=== PATIENT | female | born 1990 | race Caucasian/White ===

== ENCOUNTER 2018-10-16 08:01 | Emergency (ER) | payer MEDICAID, SELFPAY ==
[2018-10-16 08:01] VITALS: BP 134/86; PULSE 79; RESP 16; TEMP 36.3; O2SAT 100; BMI 29.9
--- NOTE | 2018-10-16 08:15 | ED.VIS.GEN ---
History of Present Illness Chief Complaint: Weakness Informant: Patient Onset: Today Current Severity: Moderate Maximum Severity: Moderate Narrative: Patient presents with lightheadedness nausea and feeling weak. She woke up like this this morning. She does admit to quite a bit of alcohol last night. She has no chest pain shortness of breath fever or chills. She has no back pain. She has no rash she has no weakness or paresthesias. She does have a headache. Past Medical History - Allergies and Home Meds Allergies/Adverse Reactions: Allergies Penicillins Allergy (Verified 10/16/18 08:03) Unknown Past Medical History: None Surgical History: noncontributory Smoking Status: Current every day smoker Alcohol: Occasional Review of Systems All systems negative except as indicated General: Denies: Chills Eyes: Denies: Visual changes - bilaterally Cardiovascular: Denies: Chest pain Respiratory: Denies: Dyspnea Gastrointestinal: Reports: Nausea Musculoskeletal: Denies: Neck pain, Back pain Neurological: Reports: Headache, Weakness Physical Exam Vital Signs/Narrative: Vital Signs Temp Pulse Resp BP Pulse Ox 10/16/18 08:01 97.3 F L 79 16 134/86 H 100 General: Well nourished, - - Appears in some distress Head: Normocephalic, Atraumatic Eyes: Negative for: Pale conjunctiva ENT: Dry mucous membranes Cardiovascular: Regular rate, Regular rhythm Respiratory: No distress Abdomen: Soft, Nontender Back: Nontender, Normal Inspection Extremities: No edema Skin: Normal color Neurological: Alert, Oriented x3, Normal Strength, Normal Sensation Psychological: Normal affect Diagnostic/Tx/Re-eval - Medical Decision Making Patient appears well, she will be hydrated given antiemetics and Toradol. I will give her a note for work she will be discharged in stable condition. Disposition discharge stable condition ED Disposition - Plan for ED Patient: Disposition: Home or Assisted Living Diagnosis: Dehydration Instructions: Dehydration Referrals: Abraham Damon MD [STAFF PHYSICIAN] - 3-5 Days
[2018-10-16] MEDS: Ketorolac 15 MG/ML Vial IV (08:31)
[2018-10-16] MEDS: 0.9% Normal Saline 1,000 ML 1000 ML IV (08:31)
[2018-10-16] MEDS: Ondansetron 4 MG/2 ML Vial IV (08:31)
== END 2018-10-16 09:52 | disposition home or self-care (01) ==
PROVIDERS: Emergency Provider Emergency Medicine
DX: E86.0 Dehydration (principal); F17.200 Nicotine dependence, unspecified, uncomplicated
CPT/HCPCS: 96361; 96374; 96375; 99283; J7030; A4216; J2405

== ENCOUNTER 2018-12-08 05:34 | Emergency (ER) | payer SELFPAY ==
[2018-12-08 05:35] VITALS: BP 117/85; PULSE 75; RESP 16; TEMP 36.6; O2SAT 100; BMI 31.8
--- NOTE | 2018-12-08 05:54 | EKG12_ITS ---
Test Reason : CHEST PAIN Blood Pressure : / mmHG Vent. Rate : 078 BPM Atrial Rate : 078 BPM P-R Int : 162 ms QRS Dur : 090 ms QT Int : 386 ms P-R-T Axes : 059 052 069 degrees QTc Int : 440 ms Normal sinus rhythm Normal ECG Confirmed by JULEE SIMPSON, NAIDA ([id number]), state editor VINH HIDALGO ([id number]) on 12/10/2018 1:44:43 PM Referred By: SCOTT Confirmed By:NAIDA LADD MD
--- NOTE | 2018-12-08 05:54 | RAD_ITS ---
HISTORY: Chest Pain EXAMINATION/TECHNIQUE: XR Chest 1 View: Portable COMPARISON: None FINDINGS: Normal heart size. Lung volumes appear normal. No vascular congestion, pleural effusion, or pulmonary infiltration. No pneumothorax. The bony thorax appears intact. RAD/Chest 1 View (Portable) IMPRESSION: Normal chest. at 0626 Reported and signed by: Giovanni Choudhury MD Electronically Signed: Giovanni Choudhury, at 6:25 EDT Tel , Service support ,
--- NOTE | 2018-12-08 05:59 | ED.VISSUMM ---
- ER Visit Summary Date of Service: 12/08/18 Chief Complaint: Chest pain History of Present Illness: The patient is a 28 F who presents with chest pain that began yesterday. Patient describes the pain as a fullness that is sharp at times. Patient states the pain is over the left chest. Patient states nothing makes it better or worse. Patient admits to some nausea but denies any vomiting. Patient denies any diaphoresis. Patient does admit to some shortness of breath but denies any cough or fevers. Patient admits to some palpitations and lightheadedness. Patient is a smoker. Patient denies any other cardiac or PE risk factors. Physical Examination: Vital signs are stable. Patient is afebrile. Patient is in no acute distress. Oral mucosa is pink and moist. Neck is supple. Trachea is midline. There is no JVD noted. Heart was regular rate and rhythm. Lungs are clear and equal bilaterally. Abdomen is soft. Bowel sounds are normal. There is no tenderness. Cranial nerves II through XII are intact. There are no focal motor or sensory deficits noted. Skin is warm and dry. Test Results: EKG showed a normal sinus rhythm with a rate of 78. There are no acute ST or T wave changes. CBC, basic metabolic profile, and troponin were obtained and were within normal limits. Portable chest x-ray was obtained and was normal. Emergency Department Course and Treatment: Patient was given aspirin here. Patient felt better on reevaluation. Patient was advised that she is at low risk for acute cardiac event. Patient has a HEART score of 2. Patient was instructed to follow-up with her primary care physician in 5 to 7 days for further evaluation. Patient understood and was agreeable with the plan. All questions were answered. Disposition: Discharge home Impression: Chest pain This note was generated with [employer] dictation software. It may contain incorrect words, spelling, and punctuation that were not noted in review of the chart prior to signing ED Disposition - Plan for ED Patient: Disposition: Home or Assisted Living Diagnosis: Chest pain of uncertain etiology Instructions: CHEST PAIN, Uncertain Cause Referrals: Care Physician,No Primary [Primary Care Provider] - Jason Paiz MD [NON-STAFF] - 5-7 Days
[2018-12-08] MEDS: Aspirin 81 MG TAB.CHEW 324 MG PO (06:03)
[2018-12-08 06:45] LABS: Absolute Lymphocyte Count 1.96 X10^3/uL (0.83-4.51); Absolute Neutrophil Count 5.5 X10^3/uL (2.0-7.7); Basophil# 0.01 X10^3/uL; Basophil% 0.1 % (0-1); Eosinophils% 2.5 % (0-5); Hematocrit 44.9 % (37-47); Hemoglobin 14.9 g/dL (12.0-15.0); Lymphocyte # 1.96 X10^3/ul (4.0); Lymphocyte % 24.1 % (19-41); Mean Corp Hgb Conc 33.2 g/dL (32-36); Mean Corpuscular Hgb 31.5 pg (27.0-32.0); Mean Corpuscular Volume 94.9 fL (81-99); Monocyte# 0.48 X10^3/uL; Monocyte% 5.9 % (0-10); NRBC Flagged by Analyzer 0 % (0-5); Neutrophil # 5.47 X10^3/uL (2.7-7.7); Neutrophil % 67.2 % (47-70); Platelet Count 385 K/mm3 (150-450); RBC Distribution Width CV 12.2 % (11.6-14.6); RBC Distribution Width SD 42.8 fl (35.1-43.9); Red Blood Count 4.73 M/mm3 (4.2-5.4); White Blood Count 8.1 K/mm3 (4.4-11.0)
[2018-12-08 06:47] LABS: Anion Gap 6 (5-15); BUN 11 mg/dL (7-18); BUN/Creat Ratio 15.1 RATIO (10-20); Chloride 105 mmol/L (98-107); Creatinine, Serum 0.73 mg/dL (0.55-1.02); EST Glomerular Filtration Rate 102 mL/min (>60); Est Glom Filt Rate - Afr Amer 123 mL/min (>60); Estimated Creatinine Clearance 99.96 ml/min; Glucose 98 mg/dL (74-106); Potassium 3.8 mmol/L (3.5-5.1); Sodium Level 139 mmol/L (136-145)
[2018-12-08 07:39] VITALS: RESP 18
== END 2018-12-08 07:40 | disposition home or self-care (01) ==
PROVIDERS: Emergency Provider Emergency Medicine
DX: R07.9 Chest pain, unspecified (principal); F17.200 Nicotine dependence, unspecified, uncomplicated
CPT/HCPCS: 71045; 80048; 84484; 85025; 93005; 99284; A4216

== ENCOUNTER 2019-01-29 05:52 | Emergency (ER) | payer MEDICAID, SELFPAY ==
[2019-01-29 05:53] VITALS: BP 124/73; PULSE 70; RESP 21; TEMP 36.7; O2SAT 100; BMI 32.8
--- NOTE | 2019-01-29 06:14 | EKG12_ITS ---
Test Reason : DIZZINESS Blood Pressure : / mmHG Vent. Rate : 060 BPM Atrial Rate : 060 BPM P-R Int : 140 ms QRS Dur : 092 ms QT Int : 400 ms P-R-T Axes : 046 068 054 degrees QTc Int : 400 ms Normal sinus rhythm with sinus arrhythmia Normal ECG Confirmed by MEAGHAN SIMPSON, ABBY ([id number]), editorial specialist KEN AGUILLON ([id number]) on 02/02/2019 11:50:38 AM Referred By: ALIDA Confirmed By:ABBY HARDING MD
--- NOTE | 2019-01-29 06:14 | ED.VIS.GEN ---
History of Present Illness Chief Complaint: Dizziness Informant: Patient Onset: Today Context: Gradual Onset Timing: Waxes and wanes Current Severity: Mild Maximum Severity: Moderate Narrative: Patient presents with lightheaded and dizzy sensation with near syncope. She was at work earlier this morning. She took a tab of Ntractive pain medicine around 430 or 445. She states this is a coworkers medication and did have caffeine in it. Patient states that around 5 AM she started feeling lightheaded and dizzy. She felt as if she might pass out. She states she felt like her heart was racing but when she would check her heart rate it seems normal. Symptoms are improving at this time. - Past Medical History (1) Anxiety Status: Chronic (2) Depression Status: Chronic Past Medical History - Allergies and Home Meds Allergies/Adverse Reactions: Allergies Penicillins Allergy (Verified 10/16/18 08:03) Unknown shellfish derived Allergy (Verified 12/08/18 05:35) Hives Primary Care Physician: Care Physician,No Primary [Primary Care Provider] - Prior records reviewed: Yes Surgical History: noncontributory Smoking Status: Current every day smoker Review of Systems General: Denies: Chills, Fever Eyes: Denies: Visual changes - bilaterally ENT: Denies: Bilateral ear pain, Sore throat Cardiovascular: Reports: Heart racing. Denies: Chest pain Respiratory: Denies: Dyspnea, Cough Gastrointestinal: Denies: Abdominal pain, Nausea, Vomiting, Diarrhea Genitourinary: Denies: Dysuria Musculoskeletal: Denies: Neck pain, Back pain Skin: Denies: Rash Neurological: Denies: Headache Hematologic: Denies: Easy bruising, Easy bleeding Allergy: Denies: Uticaria Physical Exam Vital Signs/Narrative: Vital Signs Temp Pulse Resp BP Pulse Ox 01/29/19 05:53 98.0 F 70 21 H 124/73 H 100 Inital Vital Signs reviewed: Yes General: Well nourished, Well developed Head: Normocephalic ENT: Moist mucous membranes Neck: Supple Cardiovascular: Regular rate, Regular rhythm Respiratory: No distress, CTA bilaterally Abdomen: Soft, Nontender Skin: Normal color Neurological: Alert, Oriented x3 Psychological: Normal affect Diagnostic/Tx/Re-eval Laboratory Results 01/29/19 01/29/19 01/29/19 06:24 06:30 06:30 WBC Corrected WBC RBC Hgb Hct MCV MCH MCHC RDW Std Deviation RDW Coeff of Petr Plt Count MPV Immature Gran % (Auto) Neut % (Auto) Lymph % (Auto) [place] % (Auto) Eos % (Auto) Baso % (Auto) Absolute Neuts (auto) Absolute Lymphs (auto) Total Counted Neutrophils % (Manual) Band Neutrophils % Lymphocytes % (Manual) Monocytes % (Manual) Eosinophils % (Manual) Basophils % (Manual) Metamyelocytes % Myelocytes % Promyelocytes % Blast Cells % Plasma Cell % (Manual) Other Cells % Nucleated RBC % Nucleated RBCs/100 WBC Differential Comment Diff Path Review Hypersegmented Neuts Atypical Lymphocytes Reactive Lymphocytes Smudge Cells Toxic Granulation Toxic Vacuolation Dohle Bodies Vanessa Rods Platelet Estimate Plt Morphology Comment RBC Morphology Polychromasia Hypochromasia Poikilocytosis Basophilic Stippling Anisocytosis Microcytosis Macrocytosis Spherocytes Sickle Cells Target Cells Tear Drop Cells Ovalocytes Stomatocytes [place] Bodies Owen Cells Bite Cells Crenated Cell Acanthocytes (Spur) Rouleaux Schistocytes Sodium Potassium Chloride Carbon Dioxide Anion Gap BUN Creatinine Estim Creat Clear Calc Est GFR (MDRD) Af Amer Est GFR (MDRD) Non-Af BUN/Creatinine Ratio Glucose Calcium Urine Color Straw Urine Clarity Clear Urine pH 7.0 Ur Specific [place] 1.010 Urine Protein Negative Urine Glucose (UA) Normal Urine Ketones Negative Urine Occult Blood Negative Urine Nitrite Negative Urine Bilirubin Negative Urine Urobilinogen Normal Ur Leukocyte Esterase Negative Urine RBC 0 SEEN Urine WBC 0 SEEN Ur Squamous Epith Cells 0-5 SEEN Urine Bacteria 0 SEEN Urine Mucus 0 SEEN Urine Test Negative POC Glucose 98 01/29/19 01/29/19 01/29/19 06:35 06:35 06:55 WBC Cancelled 8.3 Corrected WBC Cancelled RBC Cancelled 4.21 Hgb Cancelled 13.4 Hct Cancelled 39.1 MCV Cancelled 92.9 MCH Cancelled 31.8 MCHC Cancelled 34.3 RDW Std Deviation Cancelled 41.7 RDW Coeff of Petr Cancelled 12.2 Plt Count Cancelled 327 MPV Cancelled 9.6 Immature Gran % (Auto) Cancelled 0.200 Neut % (Auto) Cancelled 71.3 H Lymph % (Auto) Cancelled 19.6 [place] % (Auto) Cancelled 7.1 Eos % (Auto) Cancelled 1.6 Baso % (Auto) Cancelled 0.2 Absolute Neuts (auto) Cancelled 5.9 Absolute Lymphs (auto) Cancelled 1.62 Total Counted Cancelled Neutrophils % (Manual) Cancelled Band Neutrophils % Cancelled Lymphocytes % (Manual) Cancelled Monocytes % (Manual) Cancelled Eosinophils % (Manual) Cancelled Basophils % (Manual) Cancelled Metamyelocytes % Cancelled Myelocytes % Cancelled Promyelocytes % Cancelled Blast Cells % Cancelled Plasma Cell % (Manual) Cancelled Other Cells % Cancelled Nucleated RBC % Cancelled 0 Nucleated RBCs/100 WBC Cancelled Differential Comment Cancelled Diff Path Review Cancelled Hypersegmented Neuts Cancelled Atypical Lymphocytes Cancelled Reactive Lymphocytes Cancelled Smudge Cells Cancelled Toxic Granulation Cancelled Toxic Vacuolation Cancelled Dohle Bodies Cancelled Vanessa Rods Cancelled Platelet Estimate Cancelled Plt Morphology Comment Cancelled RBC Morphology Cancelled Polychromasia Cancelled Hypochromasia Cancelled Poikilocytosis Cancelled Basophilic Stippling Cancelled Anisocytosis Cancelled Microcytosis Cancelled Macrocytosis Cancelled Spherocytes Cancelled Sickle Cells Cancelled Target Cells Cancelled Tear Drop Cells Cancelled Ovalocytes Cancelled Stomatocytes Cancelled [place] Bodies Cancelled Owen Cells Cancelled Bite Cells Cancelled Crenated Cell Cancelled Acanthocytes (Spur) Cancelled Rouleaux Cancelled Schistocytes Cancelled Sodium Cancelled Potassium Cancelled Chloride Cancelled Carbon Dioxide Cancelled Anion Gap Cancelled BUN Cancelled Creatinine Cancelled Estim Creat Clear Calc Cancelled Est GFR (MDRD) Af Amer Cancelled Est GFR (MDRD) Non-Af Cancelled BUN/Creatinine Ratio Cancelled Glucose Cancelled Calcium Cancelled Urine Color Urine Clarity Urine pH Ur Specific [place] Urine Protein Urine Glucose (UA) Urine Ketones Urine Occult Blood Urine Nitrite Urine Bilirubin Urine Urobilinogen Ur Leukocyte Esterase Urine RBC Urine WBC Ur Squamous Epith Cells Urine Bacteria Urine Mucus Urine Test POC Glucose 01/29/19 07:10 WBC Corrected WBC RBC Hgb Hct MCV MCH MCHC RDW Std Deviation RDW Coeff of Petr Plt Count MPV Immature Gran % (Auto) Neut % (Auto) Lymph % (Auto) [place] % (Auto) Eos % (Auto) Baso % (Auto) Absolute Neuts (auto) Absolute Lymphs (auto) Total Counted Neutrophils % (Manual) Band Neutrophils % Lymphocytes % (Manual) Monocytes % (Manual) Eosinophils % (Manual) Basophils % (Manual) Metamyelocytes % Myelocytes % Promyelocytes % Blast Cells % Plasma Cell % (Manual) Other Cells % Nucleated RBC % Nucleated RBCs/100 WBC Differential Comment Diff Path Review Hypersegmented Neuts Atypical Lymphocytes Reactive Lymphocytes Smudge Cells Toxic Granulation Toxic Vacuolation Dohle Bodies Vanessa Rods Platelet Estimate Plt Morphology Comment RBC Morphology Polychromasia Hypochromasia Poikilocytosis Basophilic Stippling Anisocytosis Microcytosis Macrocytosis Spherocytes Sickle Cells Target Cells Tear Drop Cells Ovalocytes Stomatocytes [place] Bodies Owen Cells Bite Cells Crenated Cell Acanthocytes (Spur) Rouleaux Schistocytes Sodium 140 Potassium 3.8 Chloride 107 Carbon Dioxide 27.0 Anion Gap 6 BUN 12 Creatinine 0.56 Estim Creat Clear Calc 130.31 Est GFR (MDRD) Af Amer 166 Est GFR (MDRD) Non-Af 137 BUN/Creatinine Ratio 21.4 H Glucose 83 Calcium 8.8 Urine Color Urine Clarity Urine pH Ur Specific [place] Urine Protein Urine Glucose (UA) Urine Ketones Urine Occult Blood Urine Nitrite Urine Bilirubin Urine Urobilinogen Ur Leukocyte Esterase Urine RBC Urine WBC Ur Squamous Epith Cells Urine Bacteria Urine Mucus Urine Test POC Glucose - EKG Initial EKG Interpretation: Sinus Rhythm - Sinus at 60 with no acute ischemia. - Medical Decision Making Patient was given IV fluids here. On repeat evaluation she does feel improved. I do not know if she reacted to the caffeine that was in the tablet she took earlier today or some other component, but symptoms seem to be improving. She is comfortable with discharge to home and monitor her symptoms. ED Disposition - Plan for ED Patient: Disposition: Home or Assisted Living Diagnosis: Dizziness Instructions: DIZZINESS, Unk Cause Referrals: Juan Luna MD [STAFF PHYSICIAN] - As Needed
[2019-01-29 06:30] LABS: Bedside Glucose 98 mg/dL (70-110)
[2019-01-29 06:43] LABS: Bacteria 0 SEEN /hpf (None Seen); Mucous, Urine 0 SEEN /hpf (<or=2+); Red Blood Cells-Urine 0 SEEN /hpf (0-5); White Blood Cells 0 SEEN /hpf (0-5)
[2019-01-29 06:49] LABS: Internal QC Validated? YES +Cl - CLEAR BKGD; Pregnancy, Urine Negative Negative
[2019-01-29 07:01] LABS: Color, Urine Straw (Yellow); Glucose, Dipstick Normal (Normal); Ketone-Dipstick Negative (Negative); Leukocyte Esterase-Dipstick Negative /ul (Negative); Nitrite-Dipstick Negative (Negative); Occult Blood-Urine Negative /ul (Negative); Protein-Dipstick Negative (Negative); Urine Bilirubin Dipstick Negative (Negative); Urine Clarity Clear (Clear); Urine Urobilinogen Normal (Normal)
[2019-01-29 07:03] LABS: Squamous Epithelial Cells - UA 0-5 SEEN /hpf (5-10)
[2019-01-29 07:06] LABS: Absolute Lymphocyte Count 1.62 X10^3/uL (0.83-4.51); Absolute Neutrophil Count 5.9 X10^3/uL (2.0-7.7); Basophil# 0.02 X10^3/uL; Basophil% 0.2 % (0-1); Eosinophil# 0.13 X10^3/uL; Eosinophils% 1.6 % (0-5); Hematocrit 39.1 % (37-47); Hemoglobin 13.4 g/dL (12.0-15.0); Lymphocyte # 1.62 X10^3/ul (4.0); Lymphocyte % 19.6 % (19-41); Mean Corp Hgb Conc 34.3 g/dL (32-36); Mean Corpuscular Hgb 31.8 pg (27.0-32.0); Mean Corpuscular Volume 92.9 fL (81-99); Mean Platelet Vol. 9.6 fl (6.2-12.0); Monocyte# 0.59 X10^3/uL; Monocyte% 7.1 % (0-10); NRBC Flagged by Analyzer 0 % (0-5); Neutrophil # 5.88 X10^3/uL (2.7-7.7); Neutrophil % 71.3 % (47-70); Platelet Count 327 K/mm3 (150-450); RBC Distribution Width CV 12.2 % (11.6-14.6); RBC Distribution Width SD 41.7 fl (35.1-43.9); Red Blood Count 4.21 M/mm3 (4.2-5.4); White Blood Count 8.3 K/mm3 (4.4-11.0)
[2019-01-29 07:27] LABS: Anion Gap 6 (5-15); BUN 12 mg/dL (7-18); BUN/Creat Ratio 21.4 RATIO (10-20); Calcium,Total 8.8 mg/dL (8.5-10.1); Chloride 107 mmol/L (98-107); Creatinine, Serum 0.56 mg/dL (0.55-1.02); EST Glomerular Filtration Rate 137 mL/min (>60); Est Glom Filt Rate - Afr Amer 166 mL/min (>60); Estimated Creatinine Clearance 130.31 ml/min; Glucose 83 mg/dL (74-106); Potassium 3.8 mmol/L (3.5-5.1); Sodium Level 140 mmol/L (136-145)
[2019-01-29 07:40] VITALS: BP 108/72; PULSE 71; RESP 15; O2SAT 98
== END 2019-01-29 07:42 | disposition home or self-care (01) ==
PROVIDERS: Emergency Provider Emergency Medicine
DX: R42 Dizziness and giddiness (principal); F17.200 Nicotine dependence, unspecified, uncomplicated
CPT/HCPCS: 80048; 81001; 81025; 82962; 85025; 93005; 99285; J7040; A4216

== ENCOUNTER 2019-02-10 10:37 | Emergency (ER) | payer MEDICAID, SELFPAY ==
[2019-02-10 10:39] VITALS: BP 133/78; PULSE 63; RESP 16; TEMP 36.4; O2SAT 100; BMI 32.5
--- NOTE | 2019-02-10 11:26 | ED.DCSUM_ITS ---
- ER Visit Summary Date of Service: 02/10/19 Chief Complaint: Possible low blood sugar History of Present Illness: The patient is a 28 F no seen past medical or surgical history. She is concerned that she may be intermittently having low blood sugars. States that she ate breakfast earlier this morning around 430 5:00 she had pancakes. Around 8:00 at work she felt like her sugars were dropping. She tried to eat to improve that. She had no way of checking her blood sugar. She has had episodes like this before. She denies any headache, chest pain, abdominal pain. She denies any nausea, vomiting, diarrhea or fever. No dysuria. Last menstrual period was less than 2 weeks ago. She denies any palpitations or irregular heartbeat. She states when this comes on she just does not feel well and kind of foggy. But eventually goes away. Physical Examination: Young female no acute distress vital signs are stable afebrile. H EENT exam unremarkable. Neck nontender. Lungs clear to auscultation bilaterally. Heart regular rhythm no murmur. Chest wall nontender. Abdomen soft nontender. Patient is moving all 4 extremities. Neurovascular intact. Calves are nontender without edema. Neurologically she is awake and alert with no focal motor deficits. Back exam nontender. NIH score is 0. 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 Normal dorsi plantar flexion bilaterally. Test Results: CBC shows no acute abnormality. White count of 7. Hemoglobin 13. BMP shows normal glucose of 76. Normal BUN and creatinine. TSH normal 1.5 Emergency Department Course and Treatment: Patient's exam is unremarkable. Scr eening labs will be obtained. Treatment Plan: P exam she is doing well. She will be discharged to home. She is concerned she might have hypoglycemia. I told her to eat smaller more frequent meals throughout the day. Follow-up for testing on this. Disposition: Discharge Impression: Transient malaise malaise of uncertain etiology rule out hypoglycemia This note was generated with [employer] dictation software. It may contain incorrect words, spelling, and punctuation that were not noted in review of the chart prior to signing ED Disposition - Plan for ED Patient: Referrals: Care Physician,No Primary [Primary Care Provider] -
[2019-02-10 11:42] LABS: Absolute Lymphocyte Count 2.47 X10^3/uL (0.83-4.51); Absolute Neutrophil Count 4.2 X10^3/uL (2.0-7.7); Basophil# 0.02 X10^3/uL; Basophil% 0.3 % (0-1); Eosinophil# 0.19 X10^3/uL; Eosinophils% 2.6 % (0-5); Hematocrit 41.7 % (37-47); Hemoglobin 13.9 g/dL (12.0-15.0); Lymphocyte # 2.47 X10^3/ul (4.0); Lymphocyte % 33.8 % (19-41); Mean Corp Hgb Conc 33.3 g/dL (32-36); Mean Corpuscular Hgb 31.4 pg (27.0-32.0); Mean Corpuscular Volume 94.3 fL (81-99); Mean Platelet Vol. 8.8 fl (6.2-12.0); Monocyte# 0.46 X10^3/uL; Monocyte% 6.3 % (0-10); NRBC Flagged by Analyzer 0 % (0-5); Neutrophil # 4.16 X10^3/uL (2.7-7.7); Neutrophil % 56.9 % (47-70); Platelet Count 362 K/mm3 (150-450); RBC Distribution Width CV 11.9 % (11.6-14.6); RBC Distribution Width SD 41.6 fl (35.1-43.9); Red Blood Count 4.42 M/mm3 (4.2-5.4); White Blood Count 7.3 K/mm3 (4.4-11.0)
[2019-02-10 12:08] LABS: Anion Gap 4 (5-15); BUN 12 mg/dL (7-18); BUN/Creat Ratio 22.7 RATIO (10-20); Calcium,Total 8.7 mg/dL (8.5-10.1); Chloride 110 mmol/L (98-107); Creatinine, Serum 0.53 mg/dL (0.55-1.02); EST Glomerular Filtration Rate 147 mL/min (>60); Est Glom Filt Rate - Afr Amer 178 mL/min (>60); Estimated Creatinine Clearance 137.68 ml/min; Glucose 76 mg/dL (74-106); Potassium 3.8 mmol/L (3.5-5.1); Sodium Level 142 mmol/L (136-145); Thyroid Stim Hormone (TSH) 1.51 uIU/mL (0.358-3.74)
[2019-02-10 12:10] VITALS: BP 133/78; PULSE 63; RESP 16; TEMP 36.4; O2SAT 100; BMI 32.5
--- NOTE | 2019-02-10 12:22 | ED.DEP ---
ED Disposition - Plan for ED Patient: Disposition: Home or Assisted Living Instructions: DIZZINESS, Unk Cause, HYPOGLYCEMIA, Non Diabetic Referrals: Joselo Engel, [NON CLINICAL AFFILIATE] - As soon as possible Additional Instructions: If this is hypoglycemia 1 of the ways to treat it would be eating smaller more frequent meals throughout the day. Also increase your protein.
[2019-02-10 12:30] VITALS: BP 115/80; PULSE 66; RESP 16; O2SAT 100
--- NOTE | 2019-02-10 12:30 | ED.RN ---
REVIEWED D/C INSTRUCTIONS, FOLLOW UP CARE, AND S/S THAT WOULD WARRANT A RETURN TO THE ED WITH PT. PT VERBALIZED AN UNDERSTANDING AND DENIES FURTHER QUESTIONS FOR THIS RN. PT SKIN P/W/D, RESP EVEN AND UNLABORED, PT A&O X 3, NO DISTRESS NOTED. PT AMBULATED OUT OF ED, GAIT STEADY.
== END 2019-02-10 12:31 | disposition home or self-care (01) ==
PROVIDERS: Emergency Provider Emergency Medicine
DX: R42 Dizziness and giddiness (principal); R53.81 Other malaise; Z72.0 Tobacco use
CPT/HCPCS: 80048; 84443; 85025; 99284; A4216

== ENCOUNTER 2019-03-25 06:34 | Emergency (ER) | payer MEDICAID, SELFPAY ==
[2019-03-25 06:35] VITALS: BP 118/60; PULSE 88; RESP 16; TEMP 36.4; O2SAT 100; BMI 34.1
--- NOTE | 2019-03-25 07:04 | ED.VIS.GEN ---
History of Present Illness Chief Complaint: Fatigue Informant: Patient Onset: Today Narrative: Patient is a 28-year-old female with history of anxiety and vertigo presenting with concern for dehydration. Patient was drinking last night and then woke up around 4 AM feeling unwell. She states she drink a sixpack as well as 2 tall boys last night. Patient states she drinks daily. She is not interested in quitting drinking. She also smokes cigarettes regularly. Patient denies any associated nausea or vomiting. She denies any abdominal pain. She notes that she just feels dehydrated and wants IV fluids. Patient states she does have some chest tightness which she attributes to her anxiety. She states is typical for her anxiety. Patient states she does not want an EKG or cardiac evaluation. Patient denies any other complaints at this time. Past Medical History - Allergies and Home Meds Allergies/Adverse Reactions: Allergies aspirin Allergy (Verified 02/10/19 10:39) Other Penicillins Allergy (Verified 02/10/19 10:39) Unknown shellfish derived Allergy (Verified 02/10/19 10:39) Hives Primary Care Physician: Derrell Mars MD [Primary Care Provider] - Past Medical History: - - Anxiety, vertigo Surgical History: noncontributory Smoking Status: Current every day smoker Alcohol: Heavy Drugs: None Review of Systems General: Reports: Malaise. Denies: Chills, Fever, Sweats Eyes: Denies: Visual changes - bilaterally, Diplopia ENT: Denies: Rhinorrhea, Sore throat Cardiovascular: Reports: Chest pain - Tightness. Denies: Palpitations Respiratory: Denies: Dyspnea, Cough, Dyspnea on exertion Gastrointestinal: Denies: Abdominal pain, Nausea, Vomiting, Diarrhea, Melena, Hematochezia Genitourinary: Denies: Dysuria, Hematuria, Frequency Musculoskeletal: Denies: Back pain, Extremity Pain Skin: Denies: Rash, Wounds Neurological: Denies: Headache, Weakness, Numbness Psych: Reports: Anxiety Physical Exam Vital Signs/Narrative: Vital Signs Temp Pulse Resp BP Pulse Ox 03/25/19 06:35 97.6 F L 88 16 118/60 100 Inital Vital Signs reviewed: Yes General: Well nourished, Well developed, No Acute Distress Head: Normocephalic, Atraumatic Eyes: Perrl, EOMI ENT: Moist mucous membranes, No rhinorrhea Neck: Supple, Nontender Cardiovascular: Regular rate, Regular rhythm, No murmurs Respiratory: No distress, CTA bilaterally, Chest nontender Abdomen: Soft, Nontender, Nondistended, Normal bowel sounds. Negative for: Guarding, Rebound tenderness Back: Nontender, Normal Inspection Extremities: Nontender, No edema Skin: Normal color, No rash Neurological: Alert, Oriented x3, Cranial nerves II-XII grossly intact, Normal Strength, Normal Sensation Psychological: Normal affect, Normal Mood, Tearful Diagnostic/Tx/Re-eval Laboratory Data 03/25/19 03/25/19 07:13 07:13 WBC 9.1 RBC 4.92 Hgb 15.3 H Hct 45.9 MCV 93.3 MCH 31.1 MCHC 33.3 RDW Std Deviation 41.8 RDW Coeff of Petr 12.1 Plt Count 327 MPV 9.0 Immature Gran % (Auto) 0.300 Neut % (Auto) 72.3 H Lymph % (Auto) 20.1 [place] % (Auto) 5.5 Eos % (Auto) 1.5 Baso % (Auto) 0.3 Absolute Neuts (auto) 6.5 Absolute Lymphs (auto) 1.82 Nucleated RBC % 0 Sodium 138 Potassium 4.3 Chloride 111 H Carbon Dioxide 21.0 Anion Gap 6 BUN 6 L Creatinine 0.54 L Estim Creat Clear Calc 135.13 Est GFR (MDRD) Af Amer 175 Est GFR (MDRD) Non-Af 144 BUN/Creatinine Ratio 11.2 Glucose 75 Calcium 8.6 Total Bilirubin 0.50 AST 27 ALT 37 Alkaline Phosphatase 58 Total Protein 7.7 Albumin 3.8 Globulin 3.9 Albumin/Globulin Ratio 1.0 Lipase 60 L - Medical Decision Making Patient is evaluated for concern of dehydration. She was drinking heavily last night. She appears nontoxic in no acute distress. She is not clinically intoxicated. I do not think there is a need to check an alcohol level at this time. Patient is not have any abdominal pain. I did check a CBC, CMP and lipase. These were all grossly normal. She is slightly hemoconcentrated consistent with her concerns for dehydration. She is given IV fluids. Patient be discharged home after IV fluids. She is offered resources for alcohol abuse but declines. Patient was offered EKG and cardiac work-up for her chest pain but she refuses. Patient is counseled on signs and symptoms requiring return to the emergency room. Patient verbalizes agreement and understand this plan. Patient discharged home in stable and improved condition. ED Disposition - Plan for ED Patient: Disposition: Home or Assisted Living Diagnosis: Dehydration Instructions: DEHYDRATION (7y-Adult) Referrals: Derrell Mars MD [Primary Care Provider] -
[2019-03-25] MEDS: 0.9% Normal Saline 1,000 ML 1000 ML IV (07:14)
[2019-03-25 07:26] LABS: Absolute Lymphocyte Count 1.82 X10^3/uL (0.83-4.51); Absolute Neutrophil Count 6.5 X10^3/uL (2.0-7.7); Basophil# 0.03 X10^3/uL; Basophil% 0.3 % (0-1); Eosinophil# 0.14 X10^3/uL; Eosinophils% 1.5 % (0-5); Hematocrit 45.9 % (37-47); Hemoglobin 15.3 g/dL (12.0-15.0); Lymphocyte # 1.82 X10^3/ul (4.0); Lymphocyte % 20.1 % (19-41); Mean Corp Hgb Conc 33.3 g/dL (32-36); Mean Corpuscular Hgb 31.1 pg (27.0-32.0); Mean Corpuscular Volume 93.3 fL (81-99); Monocyte% 5.5 % (0-10); NRBC Flagged by Analyzer 0 % (0-5); Neutrophil # 6.54 X10^3/uL (2.7-7.7); Neutrophil % 72.3 % (47-70); Platelet Count 327 K/mm3 (150-450); RBC Distribution Width CV 12.1 % (11.6-14.6); RBC Distribution Width SD 41.8 fl (35.1-43.9); Red Blood Count 4.92 M/mm3 (4.2-5.4); White Blood Count 9.1 K/mm3 (4.4-11.0)
[2019-03-25 07:50] LABS: AST(SGOT) 27 U/L (15-37); Alanine Aminotransfer ALT/SGPT 37 U/L (13-56); Albumin, Serum 3.8 g/dL (3.2-5.0); Alkaline Phosphatase 58 U/L (45-117); Anion Gap 6 (5-15); BUN 6 mg/dL (7-18); BUN/Creat Ratio 11.2 RATIO (10-20); Calcium,Total 8.6 mg/dL (8.5-10.1); Chloride 111 mmol/L (98-107); Creatinine, Serum 0.54 mg/dL (0.55-1.02); EST Glomerular Filtration Rate 144 mL/min (>60); Est Glom Filt Rate - Afr Amer 175 mL/min (>60); Estimated Creatinine Clearance 135.13 ml/min; Globulin 3.9 g/dL (2.2-4.2); Glucose 75 mg/dL (74-106); Lipase 60 U/L (73-393); Potassium 4.3 mmol/L (3.5-5.1); Protein, Total 7.7 g/dL (6.4-8.2); Sodium Level 138 mmol/L (136-145)
[2019-03-25 08:29] VITALS: BP 115/58; PULSE 106; RESP 16; O2SAT 95
== END 2019-03-25 08:33 | disposition home or self-care (01) ==
PROVIDERS: Emergency Provider Emergency Medicine; PCP Family Medicine
DX: E86.0 Dehydration (principal); R07.89 Other chest pain; F41.9 Anxiety disorder, unspecified; F17.210 Nicotine dependence, cigarettes, uncomplicated; Z79.899 Other long term (current) drug therapy; Z88.0 Allergy status to penicillin
CPT/HCPCS: 80053; 83690; 85025; 96360; 99285; J7030; A4216

== ENCOUNTER 2019-04-09 15:00 | Outpatient (RCR) | payer MEDICAID, SELFPAY ==
--- NOTE | 2019-03-13 14:33 | HP.PTEVAL_ITS ---
Patient's Visit Information MADISON MCKENNA is a 28 year old F referred to Physical Therapy by Derrell Mars MD with a diagnosis of vertigo. Date of Evaluation: 03/13/19 Physical Therapist: César Myers, ZANDRAT, OCS, CSCS - Visit Plan Frequency: 1x/Week Duration: 4-6 Weeks Plan: weekly PT to progress adaptationa dn habituation as needed adn helpful. - Subjective Findings: Dizzyness. Started on adn off for the last year. Frequently daily and multiple times per day. Sometimes gets a good couple days. It lasts couple minutes to several hours. Not sure what causes it. Got meds for meclizine which helps. Last episode was this am. 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 Worse in am and when active at work. Sleeping OK, no problem at night. Head position is not a huge issue, maybe sometimes when looks up. Hiking is a hobby and won't start it when dizzy. Basic ADLs are OK, just makes it miserable. - Objective Waks normal, trasnfers normal, steps reciprocal without rail. Vor walking is symptomatic but able. cervical ROM and UE ROM WFL without pain. - B hallpike leonie. - roll test. Oculomotor: no nystagmus with gaze or headshake. - ocular tilt. - skew eye deviation. - head thrust. Pursuit and saccades are normal. VOR x2 gives immediate symptoms of dizzyness. VOR horiz give 4/10 dizzyness after 30 seconds for about 10 seconds. Vertical VOR not bad. - Balance Scores Functional Gait Assessment Score: 29 % Disability: 3.3400 CATSIB Score (Max score 120 seconds): 110 - Goals Goal 1:: Vertigo abolished at work. Goal Time Frame: 4-6 Weeks Goal 2:: VOR x 2 60 seconds without symptoms. Goal Time Frame: 4-6 Weeks Goal 3:: Pt score <3 on DHI Goal Time Frame: 4-6 Weeks - Rehabilitation Potential Physical Therapy Diagnosis: Vertigo vestib hypofunction. Rehabilitation Potential: Fair - Anticipated Interventions Patient/Client Instruction: Educate patient on: Condition, Plan of Care For the Purpose of:: To increase tolerance to activity/condition/position Comment: adaptation adn habituation For the Purpose of:: To increase tolerance to activity/condition/position Thank you for the opportunity to evaluate your patient. For Medicare and Medicare HMO plans, please review the plan of care and approve it. It will need to be FAXED BACK to us at [phone] for Medicare purposes. For Medicare only, by signing this I certify the plan of care. Please let me know if there are questions or concerns regarding this plan of care. Physician Si gnature: Date:
--- NOTE | 2019-04-09 15:13 | HP.PTDCSUM ---
HP - PT D/C Summary It has been my pleasure to treat MADISON MCKENNA under orders from Derrell Mars MD, for the diagnosis of vertigo for a total of 4 visit(s). Discharge Date: 04/09/19 Please see the following information for a summary of their discharge status. - Subjective Subjective: 90% better. Still a little dizzyness most days at work. No dizzyness at work today. Ex make her dizzy but improving. Sleep is Ok. - Overall Improvement % Improvement: 90 - Objective Objective/Function: VOR and VOR x2 busy with trasnient 0-1/10 dizzyness. MSQ no symptoms. Bend over 10x adn look up without symptoms. Balance is good. Overall significant improvements adn i expect she will keep going with hep and continue to get better. - Goals Goal 1:: Vertigo abolished at work. Goal Progress: Progressing Goal 2:: VOR x 2 60 seconds without symptoms. Goal Progress: Progressing Goal 3:: Pt score <3 on DHI Goal Progress: Progressing - Plan Plan: d/c - D/C Information If there are questions or concerns regarding this patient's physical therapy, please feel free to call me at [phone]. Thank you for the referral of this patient. Sincerely, César Myers, DPT, OCS, CSCS
== END 2019-04-09 19:00 | disposition home or self-care (01) ==
LOC: PT 15:00
PROVIDERS: Family Provider Family Medicine; PCP Family Medicine; Visit Provider Family Medicine
DX: R42 Dizziness and giddiness (principal)
CPT/HCPCS: 97112; 97161; 97164; 97530

== ENCOUNTER 2019-06-26 13:39 | Emergency (ER) | payer SELFPAY ==
[2019-06-26 13:40] VITALS: BP 138/92; PULSE 76; PULSE 87; RESP 18; TEMP 36.8; O2SAT 99; BMI 37.7
--- NOTE | 2019-06-26 13:56 | EKG12_ITS ---
Test Reason : SOB Blood Pressure : / mmHG Vent. Rate : 066 BPM Atrial Rate : 066 BPM P-R Int : 166 ms QRS Dur : 092 ms QT Int : 402 ms P-R-T Axes : 042 045 045 degrees QTc Int : 421 ms Normal sinus rhythm Normal ECG Confirmed by JULEE SIMPSON, NAIDA ([id number]), film editor supervisor KEN AGUILLON ([id number]) on 06/29/2019 10:06:39 AM Referred By: ALIDA Confirmed By:NAIDA LADD MD
--- NOTE | 2019-06-26 13:56 | ED.VIS.GEN ---
History of Present Illness Chief Complaint: Shortness of Breath Informant: Patient Onset: Today Timing: Intermittent Current Severity: Mild Maximum Severity: Moderate Narrative: Patient presents with intermittent shortness of breath that she noted this morning. She denies having wheezing. She has a mild cough but states it is consistent with her smoker's cough. No fever or chills. No other URI symptoms. Patient states the shortness of breath right now seems to be resolved and she thinks she may have overreacted. 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 We discussed possibility of coronavirus but patient states she does not want tested. - Past Medical History (1) Anxiety Status: Chronic (2) Depression Status: Chronic Past Medical History - Allergies and Home Meds Allergies/Adverse Reactions: Allergies aspirin Allergy (Verified 06/26/19 13:39) Other Penicillins Allergy (Verified 06/26/19 13:39) Unknown shellfish derived Allergy (Verified 06/26/19 13:39) Hives Primary Care Physician: Derrell Mars MD [Primary Care Provider] - Prior records reviewed: Yes Surgical History: noncontributory Lives: Spouse/ Significant Other Smoking Status: Current every day smoker Review of Systems General: Reports: Chills. Denies: Fever Eyes: Denies: Visual changes - bilaterally ENT: Denies: Bilateral ear pain Cardiovascular: Reports: Heart racing. Denies: Chest pain Respiratory: Reports: Dyspnea. Denies: Cough, Sputum Gastrointestinal: Denies: Abdominal pain, Nausea, Vomiting, Diarrhea Genitourinary: Denies: Dysuria Musculoskeletal: Denies: Swelling, Extremity Pain Skin: Denies: Rash Hematologic: Denies: Easy bruising, Easy bleeding Allergy: Denies: Uticaria Physical Exam Vital Signs/Narrative: Vital Signs Temp Pulse Resp BP Pulse Ox 06/26/19 13:40 98.2 F 87 18 138/92 H 99 Inital Vital Signs reviewed: Yes General: Well nourished, Well developed Head: Normocephalic Eyes: Perrl, EOMI ENT: Moist mucous membranes, TM's clear, - - Mild posterior pharyngeal drainage. Neck: Supple Cardiovascular: Regular rate, Regular rhythm Respiratory: No distress, CTA bilaterally Abdomen: Soft, Nontender Extremities: Nontender Skin: Normal color Neurological: Alert, Oriented x3 Psychological: Normal affect Diagnostic/Tx/Re-eval Impressions Chest X-Ray 06/26/19 14:27 IMPRESSION: Normal x-ray examination of the chest. Electronically Signed: Eagle Traore, at 14:47 EDT , Service support , 06/26/19 14:27 Chest 1 View (Portable) [RAD] Stat - EKG Initial EKG Interpretation: Sinus Rhythm - Sinus at 66 with no acute ischemia. - Medical Decision Making Patient has not had significant recurrent symptoms here. She believes that she had some mild vertigo this morning that triggered her anxiety. O2 sats of been stable. Patient be discharged home at this time. ED Disposition - Plan for ED Patient: Disposition: Home or Assisted Living Diagnosis: Dyspnea Instructions: ED Dyspnea Referrals: Derrell Mars MD [Primary Care Provider] - As Needed
--- NOTE | 2019-06-26 14:27 | RAD_ITS ---
STUDY: X-RAY CHEST REASON FOR EXAM: Female, 29 years old. SOB TECHNIQUE: Single AP portable view of the chest. COMPARISON: Comparison is made with prior study dated December 08, 2018. FINDINGS: The lungs are clear and expanded. There is no demonstrated pleural abnormality. Normal size heart. Normal mediastinum and campbell. Normal visualized pulmonary arteries. Normal visualized aortic arch and descending thoracic aorta. Normal visualized thoracic spine. Normal visualized ribs, clavicles, and shoulders. There is no demonstrated abnormality of the visualized soft tissue structures of the upper abdomen. RAD/Chest 1 View (Portable) IMPRESSION: Normal x-ray examination of the chest. Electronically Signed: Eagle Traore, at 14:47 EDT , Service support ,
[2019-06-26 15:56] VITALS: BP 136/79; PULSE 91; RESP 16; O2SAT 97
== END 2019-06-26 15:57 | disposition home or self-care (01) ==
PROVIDERS: Emergency Provider Emergency Medicine; PCP Family Medicine
DX: R06.00 Dyspnea, unspecified (principal); F17.200 Nicotine dependence, unspecified, uncomplicated
CPT/HCPCS: 71045; 93005; 99282

== ENCOUNTER 2019-12-25 03:08 | Emergency (ER) ==
[2019-12-25] VITALS (8 sets, daily range): BP systolic 134–148; BP diastolic 63–100; PULSE 74–135; RESP 8–20; TEMP 37; O2SAT 96–99
--- NOTE | 2019-12-25 03:10 | ED.RN ---
PATIENT BROUGHT IN BY MATHEW HUMMEL. PATIENT PINK SLIPPED. WHILE TRIAGING PATIENT, PATIENT DEMANDS TO SPEAK TO A COUNSELOR AT THIS MOMENT. THIS RN AND OFFICER EXPLAINED PROCESS TO PATIENT. PATIENT STATES SHE IS NOT OKAY WITH THIS AND WALKED OUT OF ROOM. PATIENT STOPPED BY OFFICERS AND ARGUED WITH OFFICERS AND STAFF IN HALLWAY, MAKING DEROGATORY STATEMENTS TO BOTH OFFICERS AND STAFF. PATIENT RETURNED TO ROOM.
--- NOTE | 2019-12-25 03:45 | ED.RN ---
PATIENT CONTINUES TO BE UNCOOPERATIVE, REFUSING LAB WORK AND GOWN. THIS RN AND OFFICERS CONTINUE TO EXPLAIN PROCESS. PATIENT CONTINUES TO STATE I WANT TO TALK TO A COUNSELOR. DOCTOR ALEXYS TO BEDSIDE TO EXPLAIN PROCESS TO PATIENT. WHILE SITTING IN ROOM TALKING TO THIS RN AND OFFICER PATIENT CALLS HOSPITAL NON PROFIT FINANCIAL CONTROLLER FROM PERSONAL PHONE AND REQUESTS TO TALK TO WHOEVER IS IN CHARGE.
--- NOTE | 2019-12-25 03:46 | ED.DCSUM_ITS ---
History of Present Illness Chief Complaint: Suicidal Informant: Patient, - - Police officers Narrative: Patient is a 29-year-old female who presents to the emergency department with police under pink slip. She apparently wrote on Facebook today that she was going to drink drink herself to . Somebody's office and was concerned and called the police. She told them that she did not care if she was alive. She said that her life did not matter. Patient states that she has been drinking alcohol today. She does have issues with alcohol before in the past. She apparently has had a recent break-up with her girlfriend. She denies any history of suicide attempt for the past. She denies any issues with drug use. Upon arrival to the emergency department she is intoxicated and uncooperative with staff. Patient does have a history of bipolar but states she does not take medications as she is refractory to it. Past Medical History - Allergies and Home Meds Allergies/Adverse Reactions: Allergies aspirin Allergy (Verified 06/26/19 13:39) Other Penicillins Allergy (Verified 06/26/19 13:39) Unknown shellfish derived Allergy (Verified 06/26/19 13:39) Hives Primary Care Physician: Derrell Mars MD [Primary Care Provider] - Prior records reviewed: Yes Past Medical History: - - Anxiety/depression Surgical History: noncontributory Smoking Status: Current every day smoker Drugs: None Review of Systems ROS: Unable to Obtain - Patient uncooperative with questioning Physical Exam Vital Signs/Narrative: Vital Signs Temp Pulse Resp BP Pulse Ox 12/25/19 03:09 98.7 F 116 H 16 130/70 H 98 Inital Vital Signs reviewed: Yes General: Well nourished, Well developed, No Acute Distress, - - Patient unc ooperative with physical exam will not allow me to evaluate her. Physical exam is therefore limited Head: Normocephalic, Atraumatic ENT: Moist mucous membranes, No rhinorrhea Neck: Supple, Nontender Respiratory: No distress Extremities: - - Moving all 4 extremities equally. Skin: Normal color, No Trauma Neurological: Alert Psychological: Agitated Diagnostic/Tx/Re-eval - Medical Decision Making Patient presents to the emergency department after making statements about her . She stated that she wanted to drink herself to . She does appear intoxicated upon arrival to the emergency department. She is very agitated and uncooperative with staff. She states that she wants to speak to a counselor. Crisis would not evaluate the patient until she is sober which she does not appear to be clinically. Patient is not safe for discharge. She is going to be in the emergency department and lab work is needed to be obtained. She is refusing this along with putting on a gown. Did attempt verbal de-escalation extensively but patient is unreasonable with this. She is repeatedly cursing at staff. Patient did require physical restraints and was given Haldol and other requiring a dose of Ativan as well. Patient then was calm and cooperative. She ended up falling asleep. Her alcohol level is elevated and will recheck after 4 and half hours so crisis will evaluate the patient. Patient will be signed out due to end of shift. Disposition will depend on reexamination after patient is sober and crisis evaluation. ED Disposition - Plan for ED Patient: Diagnosis: Suicidal behavior, Alcohol intoxication, Depression Referrals: Derrell Mars MD [Primary Care Provider] -
--- NOTE | 2019-12-25 03:50 | ED.RN ---
RN PALEOBOTANIST TO BEDSIDE.
[2019-12-25] MEDS: Haloperidol Lactate 5 MG/ML Vial IM (04:15)
[2019-12-25 04:23] LABS: Absolute Lymphocyte Count 3.45 X10^3/uL (0.83-4.51); Basophil# 0.03 X10^3/uL; Basophil% 0.2 % (0-1); Eosinophil# 0.16 X10^3/uL; Hemoglobin 14.4 g/dL (12.0-15.0); Lymphocyte # 3.45 X10^3/ul (4.0); Lymphocyte % 22.2 % (19-41); Mean Corp Hgb Conc 33.5 g/dL (32-36); Mean Corpuscular Hgb 30.1 pg (27.0-32.0); Mean Platelet Vol. 8.9 fl (6.2-12.0); Monocyte# 0.88 X10^3/uL; Monocyte% 5.7 % (0-10); NRBC Flagged by Analyzer 0 % (0-5); Neutrophil % 70.6 % (47-70); Platelet Count 416 K/mm3 (150-450); RBC Distribution Width SD 39.7 fl (35.1-43.9); Red Blood Count 4.78 M/mm3 (4.2-5.4); White Blood Count 15.6 K/mm3 (4.4-11.0)
[2019-12-25 04:36] LABS: Internal QC Validated? YES +Cl - CLEAR BKGD; Pregnancy, Serum, hCG Quali. NEGATIVE Negative
[2019-12-25 04:46] LABS: Vista UDS pH Range 5
[2019-12-25 05:08] LABS: Amphetamine Urine VISTA NEGATIVE (<1000 ng/mL); Barbiturate Urine VISTA NEGATIVE (< 200 ng/mL); Benzodiazepine Urine VISTA NEGATIVE (< 200 ng/mL); Cocaine Urine VISTA NEGATIVE (< 300 ng/mL); Ecstacy Urine VISTA NEGATIVE (< 500 ng/mL); Methadone Urine VISTA NEGATIVE (< 300 ng/mL); PCP Urine VISTA NEGATIVE (< 25 ng/mL); THC Urine VISTA NEGATIVE (< 50 ng/mL)
[2019-12-25 05:43] LABS: Anion Gap 11 (5-15); BUN 5 mg/dL (7-18); Calcium,Total 8.4 mg/dL (8.5-10.1); Chloride 113 mmol/L (98-107); EST Glomerular Filtration Rate 156 mL/min (>60); Est Glom Filt Rate - Afr Amer 189 mL/min (>60); Estimated Creatinine Clearance 144.65 ml/min; Glucose 132 mg/dL (74-106); Potassium 3.3 mmol/L (3.5-5.1); Sodium Level 142 mmol/L (136-145)
--- NOTE | 2019-12-25 05:52 | ED.RN ---
0415 THIS RN (FOREPART ROUNDER) ALONG WITH 3 OTHER RNS, SPECIAL INVESTIGATION UNIT INVESTIGATOR AND 3 [employer] OFFICERS AT BEDSIDE WITH PATIENT. PT IS INDIVIDUALLY INSULTING ALL PERSONNEL IN THE ROOM STATING LOOK AT VIKKI CORDOVA, YOU'RE A BITCH, YOU'RE DOING THIS FOR A POWER TRIP , ALL WHILE NOT FOLLOWING SIMPLE PROTOCOL REQUESTS GIVEN. THESE REQUESTS HAVE BEEN MADE SINCE THE PATIENTS ARRIVAL TO FOLLOW SAFETY STANDARDS AND INCLUDE THE PATIENT REMOVING ALL CLOTHING, GIVING A BLOOD SAMPLE AND URINE SAMPLE. PT REFUSES TO CHANGE INTO A GOWN. PT SCREAMS FUCK YOU REPEATEDLY TO ALL STAFF IN ROOM AND IS AUDIBLE WITH DOOR CLOSED IN OTHER PATIENT ROOMS. [employer] OFFICERS AT BEDSIDE LIFT PATIENT UNDER ARMS TO GET HER INTO HOSPITAL BED SHE IS CURRENTLY SITTING IN THE SITTER CHAIR REFUSING TO MOVE. PT DOES NOT ASSIST OFFICERS AND ATTEMPTS TO FALL TO THE FLOOR. OFFICERS CARRY PATIENT TO HOSPITAL BED WHERE SHE IS THEN PLACED IN 4 POINT LOCKED RESTRAINTS FOR HER SAFETY. SHE IS EMOTIONALLY REASSURED AND MEDICATED PER PHYSICIAN ORDERS. PT CONTINUES TO SCREAM AND MAKE DEMANDS.
--- NOTE | 2019-12-25 06:34 | ED.RN ---
0600 PT REQUESTED MORE BLANKETS. PT GIVEN 2 MORE WARM BLANKETS, FOOD AND WATER. PT ASKED WHEN HE COULD SPEAK TO COUNSELOR. PT WAS INFORMED AGAIN THAT COUNSELOR COULD NOT LEGALLY SPEAK TO PATIENT UNTIL ALCOHOL LEVEL IS BELOW 0.100. PATIENT INFORMED CURRENT LEVEL IS 0.187 AND AN AVERAGE PERSON METABOLIZES AT 0.020 AN HOUR SO IT WOULD BE ROUGHLY 4 MORE HOURS UNTIL BLOOD CAN BE REDRAWN. PT VERBALIZES UNDERSTANDING OF TIMELINE AND PROCESS
[2019-12-25] MEDS: LORazepam 2 MG/ML Syringe IM (06:58)
--- NOTE | 2019-12-25 10:32 | ED.RN ---
pt requesting to know how long before counsellor will talk to pt. pt aware second blood alcohol back and information faxed to [facility]
--- NOTE | 2019-12-25 11:24 | ED.RN ---
pt talking to mekhi from crisis
--- NOTE | 2019-12-25 11:37 | ED.RN ---
crises talking with pt at this time
--- NOTE | 2019-12-25 12:19 | ED.RN ---
pt refuses lunch. lunch left at bedside in case pt changes mind
--- NOTE | 2019-12-25 15:49 | ED.RN ---
pt informed that she will be transferred. pt angry and manipulative regarding decision. states i am fine. i made decision to post while i was drinking. pt aware to be transferred.
== END 2019-12-25 18:05 ==
PROVIDERS: Emergency Medicine
CPT/HCPCS: 36415; 80048; 80307; 80320; 84703; 85025; 96372; 99283; G0480

== ENCOUNTER 2021-04-07 20:46 | Emergency (ER) | payer MEDICAID, SELFPAY ==
[2021-04-07 20:46] VITALS: BP 146/90; PULSE 91; RESP 16; TEMP 36.8; O2SAT 100; BMI 39.4
[2021-04-07] MEDS: Fluorescein 1 MG STRIP 1 STRIP LEFT EYE (21:02)
[2021-04-07] MEDS: Tetracaine 0.5% Ophthalmic Bottle 1 DRP LEFT EYE (21:02)
--- NOTE | 2021-04-07 21:15 | EX.ED.VIS.EY ---
HPI History of Present Illness Chief Complaint: Eye Problem Narrative Narrative: Patient presenting with left eye irritation. She states that she was at work at [employer] and she was trying to flip a longer seat out so she could read it and it hit her in the eye and she does believe she sustained a scratch in the left eye. He states it somewhat blurry when she looks all the way to the left. She states it feels like movement has an eyelash in it. Patient states she does not wear contacts. PFSH PFS Medical History Bipolar disorder Home Medications meclizine 25 mg PO BID PRN PRN 03/25/19 [History Last Taken Unknown] multivitamin 1 ea PO DAILY 03/25/19 [History Last Taken Unknown] erythromycin 1 applic LEFT EYE TID 5 Days #3.5 g 04/07/21 [Rx Last Taken Unknown] Allergy/AdvReac Type Severity Reaction Status Date / Time aspirin Allergy Other Verified 04/07/21 20:48 Penicillins Allergy Unknown Verified 04/07/21 20:48 shellfish derived Allergy Hives Verified 04/07/21 20:48 Social History Smoking Status: Current every day smoker tobacco type: cigarettes ROS ROS ED Constitutional Constitutional ED: Denies chills or fever(s) Eyes Eyes: Reports blurry vision left and other Details: Left eye irritation ENT ENT ED: Denies ear pain or rhinorrhea Cardiovascular Cardiovascular: Denies chest pain or palpitations Respiratory/Chest Respiratory/Chest: Denies cough or dyspnea Gastrointestinal Gastrointestinal: Denies abdominal pain or nausea Genitourinary Genitourinary ED: Denies dysuria or hematuria Musculoskeletal Musculoskeletal: Denies arthralgias or myalgias Integumentary Denies abscess or rash Neurologic Neurologic: Denies headache(s) or weakness EXAM Physical Exam Const Vital Signs: 04/07/21 20:46 Temperature 98.3 F Temperature Source Temporal Pulse Rate 91 Respiratory Rate 16 Blood Pressure 146/90 H Blood Pressure Mean 108 Pulse Ox 100 Oxygen Delivery Method Room Air Positive well nourished General Appearance ED: NAD HEENT atraumatic; Negative for trauma Eyes General Eye ED: Yes normal appearance of both eyes Visual Acuity: acuity normal Periorbital: periorbital findings normal Eyelid: eyelids normal Conjunctiva: conjunctiva normal Sclera: sclera normal Cornea: cornea abnormal Positive for left Cornea - Left Eye: Positive for abrasion Details: Positive for at clock position (Linear abrasion over the cornea spreading into the o'clock position.) and fluorescein used Pupil: PERRL and accommodation reflex normal Resp normal respiratory effort and clear to auscultation bilaterally Cardio regular rate and regular rhythm Neuro oriented x3 and CN's II-XII intact bilaterally Sensorium / Orientation: alert Skin no wounds Rashes: no rashes MDM MDM MDM Narrative Medical decision making narrative: Patient found to have a small linear abrasion at the 3 o'clock position which does slightly extend over the cornea centrally. Patient not having significant pain. She is a noncontact wearer. Will place her on erythromycin ophthalmic for home. She is given follow-up with ophthalmology. She can return precautions. Impression: 1. Left eye corneal abrasion Lab Data Attestation: I reviewed the patient's lab results. Discharge Plan Triage Chief Complaint: Eye Problem ED Provider: Roni Diaz Dx/Rx/DC Orders Instructions: ED Corneal Abrasion Prescriptions: New erythromycin 5 mg/gram (0.5 %) ointment 1 applic LEFT EYE TID 5 Days Qty: 3.5 RF: 0 No Action multivitamin 1 EACH tablet 1 ea PO DAILY RF: 0 meclizine 25 MG tablet 25 mg PO BID PRN PRN (Reason: Dizziness) RF: 0 Primary Care Provider: Joselo Engel Referrals: Phil Gandhi MD [STAFF PHYSICIAN] - 3-5 Days Derrell Mars MD [NON-STAFF] - Disposition Disposition: Home, Self Care
[2021-04-07] MEDS: Erythromycin Base 1 OPTH.TUBE 1 APPLIC EACH EYE (21:21)
== END 2021-04-07 21:22 | disposition home or self-care (01) ==
LOC: ED 21:18
PROVIDERS: Emergency Provider Student in an Organized Health Care Education/Training Program; PCP Student in an Organized Health Care Education/Training Program; Visit Provider Student in an Organized Health Care Education/Training Program
DX: S05.02XA Injury of conjunctiva and corneal abrasion without foreign body, left eye, initial encounter (principal); F17.210 Nicotine dependence, cigarettes, uncomplicated; X58.XXXA Exposure to other specified factors, initial encounter
CPT/HCPCS: 99282

== ENCOUNTER 2021-08-06 11:48 | Emergency (ER) | payer MEDICAID, SELFPAY ==
[2021-08-06 11:49] VITALS: BP 125/90; PULSE 79; RESP 18; TEMP 36.8; O2SAT 99; BMI 39.8
--- NOTE | 2021-08-06 12:03 | EKG12_ITS ---
Test Reason : CP Blood Pressure : / mmHG Vent. Rate : 066 BPM Atrial Rate : 066 BPM P-R Int : 160 ms QRS Dur : 082 ms QT Int : 382 ms P-R-T Axes : 043 033 043 degrees QTc Int : 400 ms Normal sinus rhythm Normal ECG When compared with ECG of 26-JUN-2019 14:10, Nonspecific T wave abnormality, improved in Anterior leads Confirmed by MEAGHAN SIMPSON, ABBY ([id number]), editor newspaper BART WEINSTEIN ([id number]) on 08/10/2021 9:02:34 AM Referred By: ALIDA Confirmed By:ABBY HARDING MD
--- NOTE | 2021-08-06 12:03 | RAD_ITS ---
STUDY: X-RAY CHEST REASON FOR EXAM: Female, 31 years old. cp TECHNIQUE: Single AP portable view of the chest. COMPARISON: 06/26/2019 FINDINGS: The lungs are clear and expanded. There is no demonstrated pleural abnormality. Normal size heart. Normal mediastinum and campbell. Normal visualized pulmonary arteries. Normal visualized aortic arch and descending thoracic aorta. Normal visualized thoracic spine. Normal visualized ribs, clavicles, and shoulders. There is no demonstrated abnormality of the visualized soft tissue structures of the upper abdomen. RAD/Chest 1 View (Portable) IMPRESSION: Normal x-ray examination of the chest. Electronically Signed: Darnell Mendez MD at 12:34 EDT ,
--- NOTE | 2021-08-06 12:03 | EX.ED.DYSGE1 ---
HPI History of Present Illness Chief Complaint: Chest Pain Informant: patient Onset/Context/Timing Onset: Yesterday Context: Gradual Onset Timing: Waxes and wanes Current Severity: Mild Maximum Severity: Mild Narrative Narrative: Patient presents secondary to chest pain. She states has had a constant pressure in her chest but will occasionally get sharp or heavy or pressure that waxes and wanes. Symptoms started last evening. She does not feel short of breath. She does not know her family history as far as risk. PFSH PFS Medical History Bipolar disorder Home Medications meclizine 25 mg PO BID PRN PRN 03/25/19 [History Last Taken Unknown] multivitamin 1 ea PO DAILY 03/25/19 [History Last Taken Unknown] erythromycin 1 applic LEFT EYE TID 5 Days #3.5 g 04/07/21 [Rx Last Taken Unknown] Allergy/AdvReac Type Severity Reaction Status Date / Time aspirin Allergy Other Verified 08/06/21 11:50 Penicillins Allergy Unknown Verified 08/06/21 11:50 shellfish derived Allergy Hives Verified 08/06/21 11:50 Social History Smoking Status: Current every day smoker tobacco type: cigarettes ROS ROS ED Constitutional Constitutional ED: Denies chills or fever(s) Eyes Eyes: Denies change in vision ENT ENT ED: Denies sore throat Cardiovascular Cardiovascular: Reports chest pain Respiratory/Chest Respiratory/Chest: Denies cough or dyspnea Gastrointestinal Gastrointestinal: Denies abdominal pain, nausea or vomiting Genitourinary Genitourinary ED: Denies dysuria Musculoskeletal Musculoskeletal: Denies back pain or neck pain Integumentary Denies rash Neurologic Neurologic: Denies headache(s) or weakness Allergic/Immunologic Allergic/Immunologic ED: Denies urticaria EXAM Physical Exam Const Vital Signs: 08/06/21 11:49 Temperature 98.3 F Temperature Source Temporal Pulse Rate 79 Respiratory Rate 18 Blood Pressure 125/90 H Blood Pressure Mean 101 Pulse Ox 99 Oxygen Delivery Method Room Air Positive well nourished and well developed General Appearance ED: well developed HEENT Reports normocephalic and head/scalp atraumatic Eyes PERRL and EOMs intact bilaterally Neck supple Chest Wall inspection of chest normal and palpation of chest normal Resp normal respiratory effort and clear to auscultation bilaterally Cardio regular rate and regular rhythm GI normal to inspection, nondistended, normoactive bowel sounds Palpation: soft Back/Spine no CVA tenderness Extremity normal to inspection Neuro oriented x3 and no sensory deficits noted Sensorium / Orientation: alert Motor Exam: strength 5/5 throughout Psych mental status grossly normal Skin no rashes or lesions noted MDM MDM MDM Narrative Medical decision making narrative: Patient placed on traffic monitor specialist. EKG, chest x-ray, lab work obtained. Lab Data Attestation: I reviewed the patient's lab results. Labs: Laboratory Results - last 24 hr 08/06/21 08/06/21 12:10 12:10 WBC 8.4 RBC 4.86 Hgb 14.9 Hct 43.3 MCV 89.1 MCH 30.7 MCHC 34.4 RDW Std Deviation 39.9 RDW Coeff of Petr 12.1 Plt Count 321 MPV 9.0 Immature Gran % (Auto) 0.100 Neut % (Auto) 65.9 Lymph % (Auto) 24.8 [place] % (Auto) 6.6 Eos % (Auto) 2.4 Baso % (Auto) 0.2 Absolute Neuts (auto) 5.5 Absolute Lymphs (auto) 2.08 Nucleated RBC % 0 Sodium 139 Potassium 4.1 Chloride 111 H Carbon Dioxide 23.0 Anion Gap 5 BUN 12 Creatinine 0.56 Estim Creat Clear Calc 126.85 Est GFR (MDRD) Af Amer 162 Est GFR (MDRD) Non-Af 134 BUN/Creatinine Ratio 21.3 H Glucose 95 Calcium 8.9 Troponin I High Sens < 3 L Radiography Chest X-Ray - ED: 1 View, Read by ED Physician, Normal, Heart, Lungs and Mediastinum Diagnostic Testing: Clinical Impression(s) from Imaging Studies Chest X-Ray 08/06/21 12:03 IMPRESSION: Normal x-ray examination of the chest. Electronically Signed: Darnell Mendez MD at 12:34 EDT , EKG Initial EKG: Attestation: I personally reviewed and interpreted this EKG as follows: Interpretation: Sinus Rhythm (Sinus at 66 with no acute ischemia.) Treatment and Re-Evaluation Narrative: Repeat evaluation patient resting comfortably. Lab work is unremarkable with a negative troponin. Chest x-ray per my interpretation shows no infiltrate. Radiologist interpretation also reviewed. Patient's pain is very atypical for cardiac etiology and I do not believe she has a pulmonary embolism as she is not short of breath, not tachycardic, not hypoxic. Patient be discharged with supportive care. Return instructions provided. Discharge Plan Triage Chief Complaint: Chest Pain ED Provider: Ruby Cantor Dx/Rx/DC Orders Clinical Impression: Atypical chest pain Instructions: ED Chest Pain, Noncardiac Prescriptions: No Action multivitamin 1 EACH tablet 1 ea PO DAILY RF: 0 meclizine 25 MG tablet 25 mg PO BID PRN PRN (Reason: Dizziness) RF: 0 erythromycin 5 mg/gram (0.5 %) ointment 1 applic LEFT EYE TID 5 Days Qty: 3.5 RF: 0 Primary Care Provider: Joselo Engel Referrals: Joselo Engel, DO [Primary Care Provider] - 1 Week if not improving Disposition Disposition: Home, Self Care
[2021-08-06 12:20] LABS: Absolute Lymphocyte Count 2.08 X10^3/uL (0.83-4.51); Absolute Neutrophil Count 5.5 X10^3/uL (2.0-7.7); Basophil# 0.02 X10^3/uL; Basophil% 0.2 % (0-1); Eosinophils% 2.4 % (0-5); Hematocrit 43.3 % (37-47); Hemoglobin 14.9 g/dL (12.0-15.0); Lymphocyte # 2.08 X10^3/ul (0.83-4.51); Lymphocyte % 24.8 % (19-41); Mean Corp Hgb Conc 34.4 g/dL (32-36); Mean Corpuscular Hgb 30.7 pg (27.0-32.0); Mean Corpuscular Volume 89.1 fL (81-99); Monocyte# 0.55 X10^3/uL; Monocyte% 6.6 % (0-10); NRBC Flagged by Analyzer 0 % (0-5); Neutrophil # 5.52 X10^3/uL (2.7-7.7); Neutrophil % 65.9 % (47-70); Platelet Count 321 K/mm3 (150-450); RBC Distribution Width CV 12.1 % (11.6-14.6); RBC Distribution Width SD 39.9 fl (35.1-43.9); Red Blood Count 4.86 M/mm3 (4.2-5.4); White Blood Count 8.4 K/mm3 (4.4-11.0)
[2021-08-06 12:36] LABS: Anion Gap 5 (5-15); BUN 12 mg/dL (7-18); BUN/Creat Ratio 21.3 RATIO (10-20); Calcium,Total 8.9 mg/dL (8.5-10.1); Chloride 111 mmol/L (98-107); Creatinine, Serum 0.56 mg/dL (0.55-1.02); EST Glomerular Filtration Rate 134 mL/min (>60); Est Glom Filt Rate - Afr Amer 162 mL/min (>60); Estimated Creatinine Clearance 126.85 ml/min; Glucose 95 mg/dL (74-106); Potassium 4.1 mmol/L (3.5-5.1); Sodium Level 139 mmol/L (136-145); Troponin-I HS < 3 pg/mL (3.0-54.0)
[2021-08-06 13:11] VITALS: PULSE 68; O2SAT 99
== END 2021-08-06 13:12 | disposition home or self-care (01) ==
PROVIDERS: Emergency Provider Emergency Medicine; PCP Student in an Organized Health Care Education/Training Program; Visit Provider Emergency Medicine
DX: R07.89 Other chest pain (principal); F17.210 Nicotine dependence, cigarettes, uncomplicated
CPT/HCPCS: 71045; 80048; 84484; 85025; 93005; 99285; A4216

== ENCOUNTER 2022-07-10 23:08 | Emergency (ER) | payer MEDICAID, SELFPAY ==
[2022-07-10 23:09] VITALS: BP 126/79; PULSE 74; RESP 15; TEMP 36.4; O2SAT 99
--- NOTE | 2022-07-11 00:59 | EDS_ITS ---
HPI History of Present Illness Chief Complaint: Depression Narrative Narrative: Patient is a 32-year-old female with past medical history of depression and PTSD. She states she takes 10 mg Lexapro daily secondary to this. She reports that she ran out of her medication roughly 5 days ago and has not received it from her mail order pharmacy. She states she was doing okay but over the last 1 to 2 days has noticed palpitations fatigue difficulty concentrating and nausea. She states she is concerned she is going through withdrawals and secondary to this comes in for evaluation. Patient denies any homicidal or suicidal ideation. [facility] Medical History Bipolar disorder Home Medications meclizine 25 mg tablet 25 mg PO BID PRN PRN Dizziness 03/25/19 [History Last Taken Unknown] multivitamin 1 ea PO DAILY 03/25/19 [History Last Taken Unknown] erythromycin 5 mg/gram (0.5 %) eye ointment 1 applic LEFT EYE TID 5 days #3.5 grams 04/07/21 [Rx Last Taken Unknown] escitalopram oxalate 10 mg tablet (Lexapro) 10 mg PO DAILY #30 tabs 07/11/22 [Rx Last Taken Unknown] Allergy/AdvReac Type Severity Reaction Status Date / Time aspirin Allergy Other Verified 07/10/22 23:13 Penicillins Allergy Unknown Verified 07/10/22 23:13 shellfish derived Allergy Hives Verified 07/10/22 23:13 Social History Smoking Status: Current every day smoker tobacco type: cigarettes ROS ROS ED Constitutional Constitutional ED: Denies chills or fever(s) ENT ENT ED: Denies sore throat Cardiovascular Cardiovascular: Reports palpitations; Denies chest pain Respiratory/Chest Respiratory/Chest: Denies cough or dyspnea Gastrointestinal Gastrointestinal: Reports nausea; Denies abdominal pain, diarrhea or vomiting Genitourinary Genitourinary ED: Denies dysuria Musculoskeletal Musculoskeletal: Reports myalgias Integumentary Denies rash Neurologic Neurologic: Reports headache(s) Psychiatric Psychiatric: Reports depression; Denies suicidal ideation or suicidal thoughts Hematologic/Lymphatic Hematologic/Lymphatic: Denies easy bleeding or easy bruising EXAM Physical Exam Const Vital Signs: 07/10/22 23:09 Temperature 97.6 F L Temperature Source Temporal Pulse Rate 74 Respiratory Rate 15 Blood Pressure 126/79 H Blood Pressure Mean 94 Pulse Ox 99 Oxygen Delivery Method Room Air Positive well nourished and well developed General Appearance ED: well developed HEENT HEENT Narrative: Normocephalic atraumatic Eyes PERRL and EOMs intact bilaterally Neck supple Resp normal respiratory effort and clear to auscultation bilaterally Cardio regular rate and regular rhythm GI normal to inspection, nondistended, normoactive bowel sounds, non-tender, non- distended and no masses Auscultation: normoactive bowel sounds Palpation: soft Extremity normal to inspection Neuro oriented x3 and CN's II-XII intact bilaterally Sensorium / Orientation: alert Psych Psych Narrative: Patient has a depressed flat affect without homicidal or suicidal ideations Skin no rashes or lesions noted MDM MDM MDM Narrative Medical decision making narrative: Patient presented to the ER with stable vitals and in no acute distress. She reported being off her SSRI medication for 5 to 7 days and side effects consistent with withdrawal. However she is not homicidal or suicidal and therefore does not require a psychiatric evaluation. She was informed that withdrawal from SSRIs will make him feel horrible with are not life-threatening. At this time she is just requesting a dose of her Lexapro to help with her withdrawal symptoms and therefore this was provided. However as she does not have active homicidal or suicidal ideation and does appear to be caring for herself there is no need for psychiatric evaluation. Patient will be provided with a written prescription for 30 Lexapro pills as well to ensure that she has medication to cover her if her mail order pharmacy does not provide her medications soon. This plan of care was discussed with patient and friend and both are agreeable to it History & Record Review Discussion w/independent historian: Patient and Friend Discharge Plan Triage Chief Complaint: Depression ED Provider: Fred Lopez Dx/Rx/DC Orders Clinical Impression: Depression, Medication withdrawal Instructions: ED Depression Prescriptions: New escitalopram oxalate [Lexapro] 10 mg tablet 10 mg PO DAILY Qty: 30 0RF No Action multivitamin 1 EACH tablet 1 ea PO DAILY meclizine 25 MG tablet 25 mg PO BID PRN PRN (Reason: Dizziness) erythromycin 5 mg/gram (0.5 %) ointment 1 applic LEFT EYE TID 5 Days Qty: 3.5 0RF Primary Care Provider: Joselo Engel Referrals: Joselo Engel DO [Primary Care Provider] - Disposition Disposition: Home, Self Care Discharge Date/Time: 07/11/22 01:39
[2022-07-11] MEDS: Escitalopram Oxalate 10 MG Tablet PO (01:37)
== END 2022-07-11 01:39 | disposition home or self-care (01) ==
PROVIDERS: Emergency Provider Emergency Medicine; PCP Student in an Organized Health Care Education/Training Program; Visit Provider Emergency Medicine
DX: F32.A Depression, unspecified (principal); F17.210 Nicotine dependence, cigarettes, uncomplicated; Z79.899 Other long term (current) drug therapy
CPT/HCPCS: 99283

== ENCOUNTER 2023-06-02 11:32 | Emergency (ER) | payer SELFPAY ==
[2023-06-02 11:33] VITALS: BP 113/70; PULSE 85; RESP 14; TEMP 37; O2SAT 97; BMI 37.8
[2023-06-02 11:37] VITALS: BP 113/70; PULSE 78; RESP 16; O2SAT 96
--- NOTE | 2023-06-02 12:05 | EX.ED.VIS.PS ---
HPI HPI - Psych History of Present Illness Chief Complaint: Anxiety Informant: patient and EMS Narrative Narrative: 33-year-old female states she is depressed and very anxious, states is really having a hard time, needs to talk to a counselor right now, but I do not think I need to be admitted to the psych cyr. She denies suicidal or homicidal ideation, hallucinations, she is feeling depressed and extremely anxious. She states it was her birthday yesterday and she went out drinking and it seemed to make things worse, she would like she has a hangover this morning, she had palpitations racing heartbeat last night at 1 point in time not feeling her right now, and she vomited once this morning. No syncope. No angina or dyspnea. She is feeling dehydrated in addition to all of this. She has not called crisis yet. She does see a counselor regularly. She compliant with her mental health medications. [facility] Medical History (Updated 06/02/23 @ 13:[address] Georges Romo MD) Anxiety Bipolar disorder Depression PTSD (post-traumatic stress disorder) Home Medications meclizine 25 mg tablet 25 mg PO BID PRN PRN Dizziness 03/25/19 [History Last Taken Unknown] multivitamin 1 ea PO DAILY 03/25/19 [History Last Taken Unknown] escitalopram oxalate 10 mg tablet (Lexapro) 10 mg PO DAILY #30 tabs 07/11/22 [Rx Last Taken Unknown] buspirone 10 mg tablet 10 mg PO DAILY 06/02/23 [History Last Taken Unknown] Allergy/AdvReac Type Severity Reaction Status Date / Time aspirin Allergy Other Verified 06/02/23 11:35 Penicillins Allergy Unknown Verified 06/02/23 11:35 shellfish derived Allergy Hives Verified 06/02/23 11:35 Social History Smoking Status: Current every day smoker tobacco type: cigarettes ROS ROS ED Constitutional Constitutional ED: Denies chills or fever(s) Eyes Eyes: Denies change in vision or diplopia ENT ENT ED: Denies rhinorrhea or sore throat Cardiovascular Cardiovascular: Denies chest pain or palpitations Respiratory/Chest Respiratory/Chest: Denies cough or dyspnea Gastrointestinal Gastrointestinal: Reports nausea and vomiting; Denies abdominal pain or diarrhea Genitourinary Genitourinary ED: Denies dysuria or hematuria Musculoskeletal Musculoskeletal: Denies back pain or neck pain Integumentary Denies abscess or rash Neurologic Neurologic: Denies headache(s), paresthesias or weakness Psychiatric Psychiatric: Reports anxiety and depression; Denies suicidal ideation or suicidal thoughts EXAM Physical Exam Const Vital Signs: 06/02/23 11:33 06/02/23 11:37 06/02/23 13:43 Temperature 98.6 F 97.1 F L Temperature Source Temporal Pulse Rate 85 78 79 Respiratory Rate 14 16 16 Blood Pressure 113/70 113/70 116/58 L Blood Pressure Mean 84 84 77 Pulse Ox 97 96 100 Oxygen Delivery Method Room Air Room Air Positive well nourished and well developed General Appearance ED: well developed and NAD HEENT Reports moist mucous membranes normocephalic and atraumatic Eyes PERRL and EOMs intact bilaterally Neck full ROM and supple Resp normal respiratory effort and clear to auscultation bilaterally Cardio regular rate, regular rhythm and no murmurs Rate: Negative for tachycardic GI non-tender and non-distended Auscultation: normoactive bowel sounds Palpation: soft Back/Spine no CVA tenderness General Back: other FROM Extremity normal to inspection General Extremety ED: Negative for edema, pulses abnormal or tenderness General Extremity: Negative for edema or pulses abnormal Neuro oriented x3, CN's II-XII intact bilaterally and no sensory deficits noted Sensorium / Orientation: awake and alert Motor Exam: strength 5/5 throughout Psych mental status grossly normal, cooperative, activity/motor behavior normal, denies hallucinations, denies homicidal ideation and denies suicidal ideation Appearance: grossly normal, appropriate and well kempt Activity / Motor Behavior: appropriate eye contact Speech: normal speech Mood & Affect: anxious and tearful Thought Process: normal thought process Insight: insight good Judgement: judgement good Skin no rashes or lesions noted and no wounds MDM MDM MDM Narrative Medical decision making narrative: Patient's alcohol and drug screen are negative, she was given IV fluids and some Zofran for her symptoms. She is medically cleared for crisis/psychiatry to evaluate. Crisis evaluated, they agree the patient does not need to be admitted and stable to be discharged home with close outpatient follow-up, they set up an appointment and the patient declines her EKG which I am fine with and wants to leave which is fine. Lab Data Attestation: I reviewed the patient's lab results. Labs: Laboratory Results - last 24 hr 06/02/23 12:10 Urine Opiates Screen NEGATIVE Urine Methadone Screen NEGATIVE Ur Barbiturates Screen NEGATIVE Ur Phencyclidine Scrn NEGATIVE Ur Amphetamines Screen NEGATIVE MDMA (Ecstasy) Screen NEGATIVE U Benzodiazepines Scrn NEGATIVE Urine Cocaine Screen NEGATIVE U Cannabinoids Screen NEGATIVE Ur Drug Screen Comment Ethyl Alcohol < 3.0 Management Discussion w/another healthcare provider: Behavioral health Discharge Plan Triage Chief Complaint: Anxiety ED Provider: Georges Romo Dx/Rx/DC Orders Clinical Impression: Anxiety, Depression Instructions: ED Depression Prescriptions: No Action multivitamin 1 EACH tablet 1 ea PO DAILY meclizine 25 MG tablet 25 mg PO BID PRN PRN (Reason: Dizziness) escitalopram oxalate [Lexapro] 10 mg tablet 10 mg PO DAILY Qty: 30 0RF buspirone 10 mg tablet 10 mg PO DAILY Primary Care Provider: Joselo Engel Referrals: Counseling,Center [Group of Physicians] - (as directed) Joselo Engel DO [Primary Care Provider] - Disposition Disposition: Home, Self Care
[2023-06-02] MEDS: 0.9% Normal Saline (1000mL) 1,000 ML 999 ML IV (12:07)
[2023-06-02] MEDS: Ondansetron 4 MG/2 ML Vial IV (12:07)
[2023-06-02 12:45] LABS: Amphetamine Urine VISTA NEGATIVE (<1000 ng/mL); Barbiturate Urine VISTA NEGATIVE (< 200 ng/mL); Benzodiazepine Urine VISTA NEGATIVE (< 200 ng/mL); Cocaine Urine VISTA NEGATIVE (< 300 ng/mL); Ecstacy Urine VISTA NEGATIVE (< 500 ng/mL); Methadone Urine VISTA NEGATIVE (< 300 ng/mL); PCP Urine VISTA NEGATIVE (< 25 ng/mL); THC Urine VISTA NEGATIVE (< 50 ng/mL); Vista UDS pH Range 5
[2023-06-02 12:54] LABS: Alcohol, Blood (Medical)-Serum < 3.0 mg/dL
[2023-06-02 13:43] VITALS: BP 116/58; PULSE 79; RESP 16; TEMP 36.2; O2SAT 100
== END 2023-06-02 13:53 | disposition home or self-care (01) ==
PROVIDERS: Emergency Provider Emergency Medicine; PCP Student in an Organized Health Care Education/Training Program; Visit Provider Emergency Medicine
DX: F41.9 Anxiety disorder, unspecified (principal); F31.9 Bipolar disorder, unspecified; F17.210 Nicotine dependence, cigarettes, uncomplicated; Z79.899 Other long term (current) drug therapy
CPT/HCPCS: 80307; 80320; 96361; 96374; 99283; J7030; A4216; G0480; J2405